=== PATIENT | male | born 1945 | race African-American/Black ===

== ENCOUNTER → 2016-12-04 | Outpatient (CLI) | payer OTHER, MEDICARE ==
[~2016-12-04] MED LIST: ADULT LOW DOSE81 MG PO; ANTACID325 MG; ASPIRIN EC81 M1; AUGMENTIN 500-1 EACH PO; CRESTOR5 MG; LANTUS; LANTUSSOLASTAR SUBQ; LOPRESSOR 50 MG50 M1 PO; MULTI-VITAMIN1 EAC5 PO; MYFORTIC PO; NORCO 5-325 TA1 EACH PO; RENVELA800 MG PO; SODIUM BICARBO650 M3 PO; TORSEMIDE20 MG PO; VITAMIN D400 UNI1; [UNRECOGNIZED DRUG - OTHER] PO
--- NOTE | ~2016-12-04 | CNG ---
[facility] [place] [address] CYTO-NONGYN REPORT PROCEDURE Name: SAMUEL MANZANO Room #: REG ZAIDA CardonaRobyn.#: [id number] Admission: 12/04/16 Date of : 49 Discharge: Report #: [id number] Path Case #: [id number] CYTOPATHOLOGY REPORT COLLECTION DATE: 12/04/2016 RECEIVED DATE: 12/04/2016 SUBMITTING PHYS: Dr. Alvarado Harvey OTHER PHYS: Dr. Austin Barkley CLINICAL HISTORY: Ascites. SPECIMEN(S) RECEIVED: A.Abdominal fluid * * * * * * * * * * * * FINAL DIAGNOSIS: A. Abdominal fluid: - No malignant cells identified. Few mesothelial cells are present in a background of debris along with macrophages and inflammatory cells. PATHOLOGIST: Ashley Benito M.D. REPORT ELECTRONICALLY SIGNED BY: Ashley Benito M.D. DATE/TIME: 12/05/2016 15:46 * * * * * * * * * * * * GROSS PATHOLOGY: A. Abdominal fluid: The specimen is submitted unfixed, labeled "Samuel Manzano". Received by the Cytology Department is 15 mL of clear yellow fluid. One ThinPrep slide and a cell block were prepared. (clt 12.04.2016) CHILD DAY CARE TEACHER(S): CEDRIC Barton(ASCP) INITIAL CPT CODE(S): A; 60697, 86835 Professional services performed by [facility] at [place] [address], [place] [address] Technical services performed by [facility] at [address] [place] [address]., [address], [place] [address]. [facility] [address] [place] [address], [facility] [address] [place], [place] [id number] [place] [address] [place] [address] CYTO-NONGYN REPORT PROCEDURE Name: SAMUEL MANZANO Room #: REG ZAIDA Begum.#: [id number] Admission: 12/04/16 Date of : 49 Discharge: Report #: [id number] Path Case #: [id number] PHONE: [phone] DIRECTOR: Bernard Odell M.D. * * * END OF REPORT * * *
[2016-12-04 15:24] LABS: BF NUCLEATED CELLS 88; BF RBC 212
[2016-12-04 15:25] LABS: CLARITY CLEAR; COLOR YELLOW; TOTAL VOLUME 60 mL
[2016-12-04 15:29] LABS: MANUAL DIFF YES
[2016-12-04 16:20] LABS: BF NEUTROPHILS 1
[2016-12-04 16:21] LABS: BF MACROPHAGE 87
[2016-12-05 08:59] LABS: BF COMMENTS ND
[2016-12-05 17:07] LABS: BODY FLUID ALBUMIN 2.9 g/dL (()); BODY FLUID AMYLASE 38 U/L (()); BODY FLUID GLUCOSE 110 mg/dL (()); BODY FLUID LDH 92 IU/L (()); BODY FLUID PROTEIN 4.6 g/dL (())
== END | disposition home or self-care (01) ==
LOC: ULTRA 09:18
PROVIDERS: Specialist
DX: R18.8 Other ascites (principal); Z79.82 Long term (current) use of aspirin; Z79.2 Long term (current) use of antibiotics; Z79.899 Other long term (current) drug therapy

== ENCOUNTER → 2019-12-02 | Outpatient (CLI) | payer OTHER, MEDICARE | LOC: SJCVC 11:40 | PROVIDERS: ATTEND Internal Medicine | DX: Z45.018 Encounter for adjustment and management of other part of cardiac pacemaker (principal); R94.31 Abnormal electrocardiogram [ECG] [EKG]; I13.2 Hypertensive heart and chronic kidney disease with heart failure and with stage 5 chronic kidney disease, or end stage renal disease; E08.22 Diabetes mellitus due to underlying condition with diabetic chronic kidney disease; I50.32 Chronic diastolic (congestive) heart failure; N18.6 End stage renal disease; E78.5 Hyperlipidemia, unspecified; K74.60 Unspecified cirrhosis of liver; I48.91 Unspecified atrial fibrillation; R18.8 Other ascites; M19.90 Unspecified osteoarthritis, unspecified site; Z87.891 Personal history of nicotine dependence; Z79.82 Long term (current) use of aspirin; Z79.899 Other long term (current) drug therapy; Z99.2 Dependence on renal dialysis ==

== ENCOUNTER 2020-01-18 18:03 | Emergency (ER) | payer OTHER, MEDICARE ==
[~2020-01-18] VITALS: Ht 182.9 cm; Wt 77.1 kg
[2020-01-18] MEDS ORDERED: NORVASC 2.5 MG2.5 M1 PO (19:05)
[2020-01-18] MEDS ORDERED: BIOTIN10000 MC1 PO (19:06)
[2020-01-18] MEDS ORDERED: CALCIUM CARBON500 MG PO (19:08)
[2020-01-18] MEDS ORDERED: CIPRO500 M1 PO (19:09)
[2020-01-18] MEDS ORDERED: GABAPENTIN100 MG PO (19:09)
[2020-01-18] MEDS ORDERED: LINZESS145 MCG PO (19:10)
[2020-01-18] MEDS ORDERED: RENA-VITE RX T1 EACH PO (19:11)
[2020-01-18] MEDS ORDERED: NIACINAMIDE500 MG PO (19:11)
[2020-01-18 19:12] LABS: HEMATOCRIT 31.8 % (42.0-52.0); HEMOGLOBIN 10.5 gm/dL (14.0-18.0); MCH 32.8 pg (26.0-34.0); MCV 99.3 fL (80.0-100.0); PLATELET COUNT 74 thou/uL (150-400); RDW 18.6 % (10.5-14.5)
[2020-01-18 19:21] LABS: ANION GAP 9 mmol/L (7-16); BUN 37 mg/dL (7-18); CALCIUM 9.3 mg/dL (8.5-10.1); CHLORIDE 98 mmol/L (98-107); CO2 31 mmol/L (21-32); CREATININE 4.2 mg/dL (0.7-1.3); GLUCOSE 129 mg/dL (74-106); SODIUM 138 mmol/L (136-145)
[2020-01-18 19:22] LABS: POTASSIUM 5.2 mmol/L (3.5-5.1)
[2020-01-18 19:30] LABS: TROPONIN-I <0.06 ng/mL (<0.06)
[2020-01-18 19:46] LABS: ABSOLUTE NEUTROPHILS 1.8 thou/uL (1.4-8.2); ANISOCYTOSIS 1+; PLATELET ESTIMATE DECREASED
[2020-01-18] MEDS ORDERED: TESSALON PERLE100 M1 PO (20:57)
[2020-01-18 21:14] VITALS: BP 136/72
--- NOTE | 2020-01-19 08:47 | EKG ---
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: NO : 1945 Requested By: Chapito Mario Order Number: [id number] MD: Carroll Mckeon Measurements Intervals [place] Rate: 68 P: 0 IA: 112 QRS: -38 QRSD: 134 T: 177 QT: 440 QTc: 469 Interpretive Statements Ventricular-paced complexes No further analysis attempted due to paced rhythm No previous ECG available for comparison Electronically Signed On 01-19-2020 8:47:21 CDT by Carroll Mckeon [email or web address] <ELECTRONICALLY SIGNED> By: Carroll Mckeon MD, FAC [id number] 36 36 Carroll Mckeon MD, [facility] /EPI
== END 2020-01-18 21:15 | disposition home or self-care (01) ==
LOC: ER 18:03
PROVIDERS: Emergency Medicine
DX: R06.09 Other forms of dyspnea (principal); I12.0 Hypertensive chronic kidney disease with stage 5 chronic kidney disease or end stage renal disease; N18.6 End stage renal disease; Z79.899 Other long term (current) drug therapy; Z79.82 Long term (current) use of aspirin; Z79.2 Long term (current) use of antibiotics